=== PATIENT | male | born 1955 | race Caucasian/White ===

== ENCOUNTER 2020-12-18 13:45 | Emergency (ER) | payer MEDICARE, OTHER, SELFPAY ==
[2020-12-18] VITALS (20 sets, daily range): BP systolic 119–163; BP diastolic 71–125; PULSE 47–96; RESP 10–30; TEMP 36.2; O2SAT 94–97
--- NOTE | 2020-12-18 13:45 | RT.EKG_ITS ---
APPROVED REPORT Exam: Resting ECG Reason for Exam: heart fluttering Patient Location: E HR:74 bpm ECG Measurements Heart Rate 74 AXIS NV 216 P 39 QRSd 77 QRS 8 QT 403 T 25 QTc 446 Conclusion Sinus arrhythmia...V-rate 58- 86, variation>10% Atrial premature complex...SV complex w/ short R-R interval Borderline prolonged NV interval...NV >212, V-rate 50- 90 Probable left atrial enlargement...P >50mS, <-0.10mV V1 I have reviewed and interpreted ECG and agree with software generated interpretation.
--- NOTE | 2020-12-18 14:00 | ED.GENADUL_ITS ---
Discharge Plan Disposition Patient Disposition: HOME Condition: Stable Discharge Details Clinical Impression: Palpitations Primary Care Provider: Unknown,Unknown ED Provider: Siobhan Henriquez Home Meds and New Rx's Prescriptions: Continued atorvastatin 40 mg Tablet 40 mg PO DAILY RF: 0 montelukast 10 mg Tablet 10 mg PO DAILY RF: 0 aspirin 81 mg Tablet 81 mg PO DAILY RF: 0 albuterol sulfate [Ventolin HFA] 90 mcg/actuation Hfa Aerosol Inhaler INHALATION PRNRF: 0 albuterol sulfate 90 mcg/actuation Hfa Aerosol Inhaler 2 puff INHALATION PRNRF: 0 potassium chloride 10 mEq Tablet,Er Particles/Crystals 10 meq PO DAILY RF: 0 budesonide-formoterol [Symbicort] 160-4.5 mcg/actuation Hfa Aerosol Inhaler 2 puff INHALATION BID RF: 0 Eliquis 5 mg Tablet 5 mg PO BID RF: 0 N-Acetylcysteine 600 mg PO DAILY RF: 0 Discharge Instructions Instructions: Heart Palpitations (ED) Additional Instructions: Follow the instructions for the Holter monitor instructed by respiratory therapy. Please return in 48 hours to have Holter monitor removed. Keep your scheduled appointment this Friday with cardiology as previously scheduled. Follow up with primary care provider in 3-5 days. Return to ED sooner if any worsening chest pain, shortness of breath, dizziness, fainting spells or concerns. Increase oral fluids. Take your normal medications as directed. Discharge Data Discharge Date/Time-TO BE ENTERED AT DEPARTURE: 12/18/20 16:49 Medical Decision Making 65-year-old male presents the ER chief complaint heart palpitations, shortness of breath, associated with dizziness and anxiety. Patient states that he has had significant stress related to family matters over the last couple weeks. He reports he received some distressing news this morning and began with high blood pressure, heart fluttering and mild shortness of breath. He does have a past medical history of COPD, paralyzed left diaphragm, possibly atrial fibrillation, anxiety. He does take Eliquis and aspirin daily he did take his normal daily dose today. She did have an nebulizer treatment this morning. He endorses occasional marijuana denies any smoking or alcohol. Upon initial exam he has no chest pain denies any nausea vomiting, endorses diarrhea recently no fever no chills. At this time cardiac work-up ordered including serial troponin, PT INR, EKG chest x-ray. Differential diagnosis includes but not limited to to arrhythmia, anxiety, CAD, [place], COPD exacerbation Of note patient is not vaccinated for Covid and does not wish to be vaccinated at this time. He denies any fever. He is afebrile upon arrival. EKG was reviewed by Zeny Diaz MD ER attending, please see her official report and review. No old EKG available for comparison Labs are within normal limits for CBC, PTT 10.8 INR 1.1 CMP is largely within normal limits. Initial troponin is within normal limits XR CHEST 2V PA LATERAL EXAM: XR CHEST 2V PA LATERAL CLINICAL HISTORY: SOB, Hx COPD. TECHNIQUE: 2D digital imaging was performed. COMPARISON: No exams were available for comparison FINDINGS: Cardiomegaly. The mediastinum is not widened. Elevated left hemidiaphragm with atelectasis in the left lung base adjacent to the elevated hemidiaphragm. Right lung is clear. No pleural effusions IMPRESSION: Elevated left hemidiaphragm. Adjacent platelike atelectasis. 1557: Patient reevaluation, has remained chest pain-free since arrival, denies significant shortness of breath, discussed lab results with patient and chest x- ray. Patient does have a history of a paralyzed left diaphragm which has been present for the last couple years. Discussed home care and follow-up patient has a cardiology visit on Friday at [facility]. Disc ussed option for Holter monitor patient verbalized understanding and is in agreement with plan. Patient does not wish to stay for the second troponin draw and since patient is chest pain-free at this time and throughout stay I do feel that that is reasonable. RT notified to complete 48-hour Holter monitor. Patient discharged with instructions to follow-up with cardiology and PCP, verbalized understanding. He remained hemodynamically stable alert and oriented throughout stay was ambulatory upon discharge. HPI General Mode of arrival: ambulatory . Date/Time Provider Initiated Documentation: 12/18/20 13:50 . Limitations to Documentation: no limitations . Information obtained by: patient . HPI Narrative: 65-year-old male presents the ER chief complaint heart palpitations, shortness of breath, associated with dizziness and anxiety. Patient states that he has had significant stress related to family matters over the last couple weeks. He reports he received some distressing news this morning and began with high blood pressure, heart fluttering and mild shortness of breath. He does have a past medical history of COPD, paralyzed left diaphragm, possibly atrial fibrillation, anxiety. He does take Eliquis and aspirin daily he did take his normal daily dose today. She did have an nebulizer treatment this morning. He endorses occasional marijuana denies any smoking or alcohol. Upon initial exam he has no chest pain denies any nausea vomiting, endorses diarrhea recently no fever no chills. Related Data Home Medications Medication Instructions Recorded Confirmed Eliquis 5 mg PO BID 12/18/20 12/18/20 N-Acetylcysteine 600 mg PO DAILY 12/18/20 albuterol sulfate 2 puff INHALATION PRN 12/18/20 albuterol sulfate [Ventolin HFA] INHALATION PRN 12/18/20 aspirin 81 mg PO DAILY 12/18/20 12/18/20 atorvastatin 40 mg PO DAILY 12/18/20 12/18/20 budesonide-formoterol [Symbicort] 2 puff INHALATION BID 12/18/20 12/18/20 montelukast 10 mg PO DAILY 12/18/20 12/18/20 potassium chloride 10 meq PO DAILY 12/18/20 12/18/20 General Stated Complaint: Palpitatns SERA: 2 Review of Systems Narrative: Constitutional: Negative for weight loss, alert and oriented, well groomed, normal body habitus, appears comfortable. HEENT: Denies trauma, headaches, blurry vision, nasal discharge, sore throat, trouble swallowing. Chest: Denies chest pain, positive palpitations, history of hypertension. Respiratory: Denies cough, hemoptysis. Positive shortness of breath history of COPD. GI: Denies abdominal pain, nausea, vomiting, constipation. Positive diarrhea. : Denies dysuria, hematuria, flank pain, rectal bleeding. Neuro: Denies blurry vision, weakness, syncope, headache or facial numbness. Positive dizziness. Hematologic: Denies easy bruising, intolerance to heat or cold, hair loss. FORMERLY [facility], LATER [facility] Social History Smoking/Tobacco Use Status: Former Tobacco Use Smoking risk assessment performed?: Yes Alcohol Intake: never Drug use: Occasionally Substance use type: marijuana Exam Narrative Exam Narrative: Constitutional: Alert and oriented x3. Appears stated age. Overweight body habitus. Head: Normocephalic, no trauma. Eyes: Pupils PERRLA, Red reflex noted, EOM's intact. Eyelids symmetrical without lesions, discharge, or swelling. ENT: Bilateral TM's WNL, External ear normal to inspection, no mastoid TTP, swelling, or erythema, Nasal turbinates WNL, no nasal discharge. Normal dentition, Posterior pharynx WNL, no exudate. Chest: RRR, Normal S1, S2, distal pulses intact. Resp: Lungs clear to auscultation bilaterally, no wheezes, rales, or rhonchi. Musculoskeletal: Normal gait, 5/5 strength to all four extremities. Skin: No suspicious rashes or lesions. Capillary refill less than 2 sec. Neurologic: Cranial nerves II-XII intact. Alert and oriented x 3. DTR's intact. Hematologic/Lymphatic: No ecchymosis, no lymphadenopathy. Course Vital Signs Vital signs: Vital Signs Temperature 36.2 C L 12/18/20 13:52 Pulse 68 12/18/20 13:52 Respiratory Rate 24 12/18/20 13:52 Blood Pressure 131/104 H 12/18/20 13:52 Pulse Oximetry 96 12/18/20 13:52 Temperature 36.2 C L 12/18/20 13:52 Temperature Source Skin 12/18/20 13:52 Pulse 68 12/18/20 13:52 Respiratory Rate 24 12/18/20 13:52 Respiratory Effort Non-Labored 12/18/20 13:52 Blood Pressure 131/104 H 12/18/20 13:52 Blood Pressure Position Sitting 12/18/20 13:52 Pulse Oximetry 96 12/18/20 13:52 Pain Level 0 12/18/20 13:52
--- NOTE | 2020-12-18 14:00 | DI.RAD_ITS ---
Exam(s) XR CHEST 2V PA LATERAL EXAM: XR CHEST 2V PA LATERAL CLINICAL HISTORY: SOB, Hx COPD. TECHNIQUE: 2D digital imaging was performed. COMPARISON: No exams were available for comparison FINDINGS: Cardiomegaly. The mediastinum is not widened. Elevated left hemidiaphragm with atelectasis in the l eft lung base adjacent to the elevated hemidiaphragm. Right lung is clear. No pleural effusions IMPRESSION: Elevated left hemidiaphragm. Adjacent platelike atelectasis. DATA REPOSITORY: RADIATION DOSE DELIVERED:
[2020-12-18 14:19] LABS: Abs Immature Grans 0.03 10^3/uL (0.0-0.06); Absolute Basophil Count 0.04 10^3/uL (0.0-0.2); Absolute Eosinophil Count 0.28 10^3/uL (0.0-0.7); Absolute Lymphocyte Count 1.67 10^3/uL (1.2-3.4); Absolute Monocyte Count 0.72 10^3/uL (0.1-0.8); Absolute Neutrophil Count 5.32 10^3/uL (1.2-6.7); Basophils % 0.5; Eosinophils % 3.5; HCT 45.4 % (40.0-50.0); Immature Grans % 0.4; Lymphocytes % 20.7; MCH 29.6 pg (27.0-33.0); MCV 89.5 fL (80-95); MPV 9.1 fL (8.0-11.0); Monocytes % 8.9; Nucleated RBC 0 %; Platelet Count 145 10^3/uL (130-400); RBC 5.07 10^6/uL (4.36-5.78); RDW 13.4 % (11.8-14.1); RDW-SD 43.8 fL; WBC 8.06 10^3/uL (4.4-10.8)
[2020-12-18 14:53] LABS: INR 1.1 (0.9-1.1); Prothrombin Time 10.8 sec (9.3-11.0)
[2020-12-18 15:01] LABS: ALT 35 U/L (16-63); AST 20 U/L (15-37); Albumin 3.3 g/dL (3.4-5.0); Alkaline Phosphatase 92 U/L (46-116); Anion Gap 5.4 mmol/L (3-11); BUN 13 mg/dL (7-18); Bilirubin, Total 0.8 mg/dL (0.2-1.0); CO2 30.6 mmol/L (21.0-32.0); Calcium 8.4 mg/dL (8.5-10.1); Chloride 107 mmol/L (98-107); Glucose 98 mg/dL (74-106); Magnesium 2.1 mg/dL (1.8-2.4); Potassium 3.7 mmol/L (3.5-5.1); Sodium 143 mmol/L (136-145); Total Protein 6.6 g/dL (6.4-8.2)
[2020-12-18 15:12] LABS: Troponin I < 0.05 ng/mL (<0.06)
== END 2020-12-18 16:49 | disposition home or self-care (01) ==
PROVIDERS: Emergency Provider Registered Nurse Emergency
DX: R00.2 Palpitations (principal)
CPT/HCPCS: 36415; 80053; 93005; 99284; 71046; 83735; 84484; 85025; 85610; 93010; 93225; 99283

== ENCOUNTER 2020-12-18 15:58 | Outpatient (RCR) | payer MEDICARE, OTHER, SELFPAY ==
--- NOTE | 2020-12-18 16:00 | HOLTER_ITS ---
APPROVED REPORT Conclusion There is a 48-hour monitor ordered for indication palpitations. The patient was in normal sinus rhythm for the majority the recording with an average heart rate of 6 7 bpm. There were no episodes of ventricular tachycardia and rare PVCs. There were 11 episodes of supraventricular tachycardia with the longest lasting 9 beats. There were occasional (3%) PACs. There were no episodes of atrial fibrillation, no pauses greater than 3 seconds and no evidence of hi gh degree heart block. There were no patient recorded events.
== END 2020-12-30 23:59 | disposition home or self-care (01) ==
LOC: RT 15:58
PROVIDERS: Visit Provider Registered Nurse Emergency
DX: R00.2 Palpitations (principal); I47.1 Supraventricular tachycardia; I49.1 Atrial premature depolarization
CPT/HCPCS: 93227; 93225; 93226

== ENCOUNTER 2021-01-08 22:14 | Emergency (ER) | payer MEDICARE, OTHER, SELFPAY ==
--- NOTE | 2021-01-08 22:15 | RT.EKG_ITS ---
APPROVED REPORT Exam: Resting ECG Reason for Exam: chest tightness Patient Location: E HR:59 bpm ECG Measurements Heart Rate 59 AXIS MA 211 P 0 QRSd 75 QRS -17 QT 400 T -30 QTc 395 Conclusion Bradycardia with irregular rate...V-rate 51- 79, mean < 60
[2021-01-08 22:25] VITALS: BP 132/77; PULSE 78; RESP 20; TEMP 36.8; O2SAT 96
--- NOTE | 2021-01-08 22:30 | DI.RAD_ITS ---
Exam(s) XR CHEST 2V PA LATERAL EXAM: XR CHEST 2V PA LATERAL CLINICAL HISTORY: chest pain TECHNIQUE: 2D digital imaging was performed. COMPARISON: CR XR CHEST 2V PA LATERAL from 12/18/2020 FINDINGS: The left diaphragm is again noted to be elevated. The cardiac silhouette is partially obscured. The lungs are clear. No infiltrate, effusion or pulmonary edema is seen. IMPRESSION: No acute abnormality. DATA REPOSITORY: RADIATION DOSE DELIVERED:
[2021-01-08 22:59] VITALS: RESP 20
[2021-01-08 23:13] LABS: Abs Immature Grans 0.02 10^3/uL (0.0-0.06); Absolute Basophil Count 0.04 10^3/uL (0.0-0.2); Absolute Eosinophil Count 0.32 10^3/uL (0.0-0.7); Absolute Lymphocyte Count 2.09 10^3/uL (1.2-3.4); Basophils % 0.4; Eosinophils % 3.4; HCT 43.8 % (40.0-50.0); HGB 14.6 g/dL (13.5-17.5); Immature Grans % 0.2; Lymphocytes % 22.3; MCH 30.1 pg (27.0-33.0); MCHC 33.3 % (32.0-36.0); MCV 90.3 fL (80-95); MPV 9.1 fL (8.0-11.0); Monocytes % 8.5; Neutrophils % 65.2; Nucleated RBC 0 %; Platelet Count 154 10^3/uL (130-400); RBC 4.85 10^6/uL (4.36-5.78); RDW 13.2 % (11.8-14.1); RDW-SD 43.4 fL; WBC 9.37 10^3/uL (4.4-10.8)
--- NOTE | 2021-01-08 23:16 | ED.GENADUL_ITS ---
Discharge Plan Disposition Patient Disposition: HOME Condition: Improving Discharge Details Clinical Impression: Palpitations Primary Care Provider: Unknown,Unknown ED Provider: Howie Hannah Home Meds and New Rx's Prescriptions: Continued atorvastatin 40 mg Tablet 40 mg PO DAILY RF: 0 montelukast 10 mg Tablet 10 mg PO DAILY RF: 0 aspirin 81 mg Tablet 81 mg PO DAILY RF: 0 albuterol sulfate [Ventolin HFA] 90 mcg/actuation Hfa Aerosol Inhaler 2 inh INHALATION PRN PRNRF: 0 albuterol sulfate 90 mcg/actuation Hfa Aerosol Inhaler 2 puff INHALATION PRN PRNRF: 0 potassium chloride 10 mEq Tablet,Er Particles/Crystals 10 meq PO DAILY RF: 0 budesonide-formoterol [Symbicort] 160-4.5 mcg/actuation Hfa Aerosol Inhaler 2 puff INHALATION BID RF: 0 Eliquis 5 mg Tablet 5 mg PO BID RF: 0 N-Acetylcysteine 600 mg PO DAILY RF: 0 furosemide 40 mg Tablet 40 mg PO DAILY RF: 0 metoprolol succinate 50 mg Tablet Extended Release 24 Hr 50 mg PO DAILY AM RF: 0 Discharge Instructions Instructions: Heart Palpitations (ED) Additional Instructions: We discussed ongoing cardiac monitoring and repeat laboratories including cardiac troponin which you have elected to defer at this time. Please return at any time for reevaluation. Return or see nearest health care facility if you develop chest pain, shortness of breath, or any other acute concerns. Follow-up with your squilgeer as planned on Friday. I have included a copy of your laboratories for your records. WBC 9.37 RBC 4.85 Hgb 14.6 Hct 43.8 MCV 90.3 MCH 30.1 MCHC 33.3 RDW 13.2 Plt Count 154 Sodium 143 Potassium 3.7 Chloride 107 Carbon Dioxide 31.7 Anion Gap 4.3 BUN 18 Creatinine 1.1 Estimated GFR/1.73 m2 >= 60.00 Glucose 105 Calcium 8.6 Magnesium 2.2 Total Bilirubin 0.6 AST 22 ALT 28 Alkaline Phosphatase 95 Troponin I < 0.05 Total Protein 6.8 Albumin 3.4 TSH 1.16 Medical Decision Making 65-year-old male presents with history of atrial fibrillation and coronary artery disease. He states over the past day he has had intermittent episodes of palpitations that seem more prolonged than normal. At times he feels anterior chest is tight. He states he had a recent nuclear stress test within 2 months that he reports was okay, but due to persistent concern for underlying lesion, he has a follow-up outpatient cardiac catheterization planned for Friday at [facility]. He arrives to the ED with a pulse in the 60s to 70s, blood pressure 132/77 and a reassuring examination. Patient observed on a labor and delivery nurse, laboratories including troponin and screening chest x-ray obtained. Labs are reassuring and within the normal range. Discussed with patient ongoing observation and repeat troponin. He states he wishes to defer this at this time and will follow up with his squilgeer for planned outpatient cardiac catheterization on Friday. I do feel he has capacity to make this decision. He was provided a copy of his laboratory work and will continue all medications including metoprolol 50 mg once a day. He will return for any concerns. Lab Data Lab results reviewed: Yes I reviewed the patient's lab results. Labs: Laboratory Results - last 24 hr 01/08/21 01/08/21 23:04 23:04 WBC 9.37 RBC 4.85 Hgb 14.6 Hct 43.8 MCV 90.3 MCH 30.1 MCHC 33.3 RDW 13.2 Plt Count 154 MPV 9.1 Immature Gran % 0.2 Neutrophils % 65.2 Lymphocytes % 22.3 Monocytes % 8.5 Eosinophils % 3.4 Basophils % 0.4 Nucleated RBC % 0 Absolute Neutrophils 6.10 Absolute Lymphocytes 2.09 Absolute Monocytes 0.80 Absolute Eosinophils 0.32 Absolute Basophils 0.04 Sodium 143 Potassium 3.7 Chloride 107 Carbon Dioxide 31.7 Anion Gap 4.3 BUN 18 Creatinine 1.1 Estimated GFR/1.73 m2 >= 60.00 Glucose 105 Calcium 8.6 Magnesium 2.2 Total Bilirubin 0.6 AST 22 ALT 28 Alkaline Phosphatase 95 Troponin I < 0.05 Total Protein 6.8 Albumin 3.4 TSH 1.16 HPI General Mode of arrival: ambulatory . Date/Time Provider Initiated Documentation: 01/08/21 22:16 . Limitations to Documentation: no limitations . Information obtained by: patient . History of Present Illness 65 year old M presents to the emergency department with the chief complaint of Chest fluttering and tight, described as moderate, Quality is described as dull, and is localized to the chest. Patient reports no radiation. Patient started experiencing this hour(s) and it has been constant. No relieving fa ctors improve symptom(s), No exacerbating factors reported . Patient notes chest pain; denies cough, shortness of breath and syncope. Patient did receive the following treatments prior to arrival, none Related Data Home Medications Medication Instructions Recorded Confirmed Eliquis 5 mg PO BID 12/18/20 01/08/21 N-Acetylcysteine 600 mg PO DAILY 12/18/20 01/08/21 albuterol sulfate 2 puff INHALATION PRN PRN 12/18/20 01/08/21 albuterol sulfate [Ventolin HFA] 2 inh INHALATION PRN PRN 12/18/20 01/08/21 aspirin 81 mg PO DAILY 12/18/20 01/08/21 atorvastatin 40 mg PO DAILY 12/18/20 01/08/21 budesonide-formoterol [Symbicort] 2 puff INHALATION BID 12/18/20 01/08/21 montelukast 10 mg PO DAILY 12/18/20 01/08/21 potassium chloride 10 meq PO DAILY 12/18/20 01/08/21 furosemide 40 mg PO DAILY 01/08/21 01/08/21 metoprolol succinate 50 mg PO DAILY AM 01/08/21 01/08/21 Allergies Allergy/AdvReac Type Severity Reaction Status Date / Time No Known Allergies Allergy Unverified 01/08/21 22:28 General Stated Complaint: Chest Pain SERA: 2 Review of Systems Narrative: No change in urination although he seems to feel its darker, chronic shortness of breath is unchanged, no new cough, no fever. Has follow-up outpatient cardiac catheterization planned for Friday. 8 systems reviewed and otherwise negative FOR[facility]LY [facility], LAT[facility] Social History Smoking/Tobacco Use Status: Former Tobacco Use Smoking risk assessment performed?: Yes Alcohol Intake: never Drug use: Occasionally Substance use type: marijuana Do you feel safe at home: Yes Do you feel safe in your relationship?: Yes Exam Narrative Exam Narrative: GEN: awake, alert, oriented 3. Pleasant, well groomed, interactive. HEAD: Normocephalic, atraumatic ENT: Mucous membranes moist, oropharynx unremarkable, External ear exam unremarkable EYES: PERRL, EOMI NECK: Full ROM, no OMAR, no menigismus CHEST/RESP: Nontender, clear to auscultation bilateral, no wheeze/rhonchi/rales CARDIOVASCULAR: Irregularly irregular, no murmur, rub sb. 2+ Rad pulse bilateral ABDOMEN: Soft, nontender, no mass. +Bowel sounds EXT: Full ROM, no edema, no rash Neuro: Grossly normal neurologic exam, conversant, interactive. Psych: Speech fluent, thoughts congruent, affect normal Course Vital Signs Vital signs: Vital Signs Temperature 36.8 C 01/08/21 22:25 Pulse 78 01/08/21 22:25 Respiratory Rate 20 01/08/21 22:25 Blood Pressure 132/77 01/08/21 22:25 Pulse Oximetry 96 01/08/21 22:25 Temperature 36.8 C 01/08/21 22:25 Temperature Source Skin 01/08/21 22:25 Pulse 78 01/08/21 22:25 Respiratory Rate 20 01/08/21 22:59 Respiratory Effort Non-Labored 01/08/21 22:59 Respiratory Depth Normal 01/08/21 22:59 Respiratory Pattern Normal 01/08/21 22:59 Blood Pressure 132/77 01/08/21 22:25 Blood Pressure Position Sitting 01/08/21 22:25 Pulse Oximetry 96 01/08/21 22:25 Oxygen Delivery Method Room Air 01/08/21 22:25 Oxygen Flow Rate 0 01/08/21 22:25 Lab/Test Results Lab/Test Results: Laboratory Tests Range/Units 01/08/21 23:04 WBC (4.4-10.8) 10^3/uL 9.37 RBC (4.36-5.78) 10^6/uL 4.85 Hgb (13.5-17.5) g/dL 14.6 Hct (40.0-50.0) % 43.8 MCV (80-95) fL 90.3 MCH (27.0-33.0) pg 30.1 MCHC (32.0-36.0) % 33.3 RDW (11.8-14.1) % 13.2 Plt Count (130-400) 10^3/uL 154 MPV (8.0-11.0) fL 9.1 Immature Gran % 0.2 Neutrophils % 65.2 Lymphocytes % 22.3 Monocytes % 8.5 Eosinophils % 3.4 Basophils % 0.4 Nucleated RBC % % 0 Absolute Neutrophils (1.2-6.7) 10^3/uL 6.10 Absolute Lymphocytes (1.2-3.4) 10^3/uL 2.09 Absolute Monocytes (0.1-0.8) 10^3/uL 0.80 Absolute Eosinophils (0.0-0.7) 10^3/uL 0.32 Absolute Basophils (0.0-0.2) 10^3/uL 0.04
[2021-01-08 23:35] VITALS: PULSE 60; RESP 22
[2021-01-08 23:35] LABS: ALT 28 U/L (16-63); AST 22 U/L (15-37); Albumin 3.4 g/dL (3.4-5.0); Alkaline Phosphatase 95 U/L (46-116); Anion Gap 4.3 mmol/L (3-11); BUN 18 mg/dL (7-18); Bilirubin, Total 0.6 mg/dL (0.2-1.0); CO2 31.7 mmol/L (21.0-32.0); CREATININE 1.1 mg/dL (0.70-1.30); Calcium 8.6 mg/dL (8.5-10.1); Chloride 107 mmol/L (98-107); Glucose 105 mg/dL (74-106); Magnesium 2.2 mg/dL (1.8-2.4); Potassium 3.7 mmol/L (3.5-5.1); Sodium 143 mmol/L (136-145); TSH 1.16 uIU/mL (0.36-3.74); Total Protein 6.8 g/dL (6.4-8.2); Troponin I < 0.05 ng/mL (<0.06)
[2021-01-08 23:40] VITALS: PULSE 62; RESP 18
[2021-01-08 23:50] VITALS: RESP 19
[2021-01-08 23:54] VITALS: BP 143/90
--- NOTE | 2021-01-09 00:06 | DI.VRAD_ITS ---
PROCEDURE INFORMATION: Exam: XR Chest Exam date and time: 01/08/2021 10:31 PM Age: 65 years old Clinical indication: Pain; Other: Tightness, heart flutter TECHNIQUE: Imaging protocol: XR of the chest. Views: 2 views. COMPARISON: CR XR CHEST 2V PA LATERAL 12/18/2020 3:34 PM FINDINGS: Lungs: Left basilar atelectasis noted. Pleural spaces: Unremarkable. No pleural effusion. No pneumothorax. Heart/Mediastinum: Heart is mildly enlarged. Diaphragm: Persistent left hemidiaphragm elevation. Bones/joints: Unremarkable. Other findings: No significant effusion. IMPRESSION: Left hemidiaphragm elevation with associated atelectasis Dictated and Authenticated by: Jose Antonio Mina MD. Ordering:LUCIO Bautista MD
== END 2021-01-08 23:55 | disposition home or self-care (01) ==
PROVIDERS: Physician Assistant; Emergency Provider Emergency Medicine
DX: R00.2 Palpitations (principal); R07.89 Other chest pain
CPT/HCPCS: 36415; 80053; 93005; 99284; 71046; 83735; 84443; 84484; 85025; 93010

== ENCOUNTER 2021-02-28 19:28 | Emergency (ER) | payer MEDICARE, OTHER, SELFPAY ==
[2021-02-28] VITALS (41 sets, daily range): BP systolic 121–161; BP diastolic 83–118; PULSE 44–85; RESP 14–27; TEMP 36.6; O2SAT 89–95
--- NOTE | 2021-02-28 19:45 | RT.EKG_ITS ---
APPROVED REPORT Exam: Resting ECG Reason for Exam: dizziness Patient Location: E HR:65 bpm ECG Measurements Heart Rate 65 AXIS ND 217 P 11 QRSd 85 QRS 4 QT 407 T -22 QTc 443 Conclusion Sinus rhythm...normal P axis, V-rate 60- 99 Atrial premature complex...SV complex w/ short R-R interval Borderline prolonged ND interval...ND >212, V-rate 50- 90 Nonspecific T abnormalities, inferior leads...T <-0.10mV, II III aVF
[2021-02-28 20:18] LABS: Abs Immature Grans 0.03 10^3/uL (0.0-0.06); Absolute Basophil Count 0.05 10^3/uL (0.0-0.2); Absolute Lymphocyte Count 1.81 10^3/uL (1.2-3.4); Absolute Monocyte Count 0.79 10^3/uL (0.1-0.8); Absolute Neutrophil Count 6.42 10^3/uL (1.2-6.7); Basophils % 0.5; Eosinophils % 4.2; HCT 45.7 % (40.0-50.0); HGB 15.2 g/dL (13.5-17.5); Immature Grans % 0.3; Lymphocytes % 19.1; MCHC 33.3 % (32.0-36.0); MCV 90.1 fL (80-95); MPV 9.1 fL (8.0-11.0); Monocytes % 8.3; Neutrophils % 67.6; Nucleated RBC 0 %; Platelet Count 150 10^3/uL (130-400); RBC 5.07 10^6/uL (4.36-5.78); RDW 13.2 % (11.8-14.1)
[2021-02-28 20:33] LABS: ALT 33 U/L (16-63); AST 20 U/L (15-37); Albumin 3.6 g/dL (3.4-5.0); Alkaline Phosphatase 106 U/L (46-116); Anion Gap 5.5 mmol/L (3-11); BUN 14 mg/dL (7-18); Bilirubin, Total 0.8 mg/dL (0.2-1.0); CO2 30.5 mmol/L (21.0-32.0); Calcium 9.2 mg/dL (8.5-10.1); Chloride 107 mmol/L (98-107); Glucose 98 mg/dL (74-106); Potassium 4.2 mmol/L (3.5-5.1); Sodium 143 mmol/L (136-145); Total Protein 7.3 g/dL (6.4-8.2)
[2021-02-28 20:34] LABS: Troponin I < 0.05 ng/mL (<0.06)
--- NOTE | 2021-02-28 20:41 | NUR.NOTE ---
Nursing Note: Patient ambulated with steady gait, O2 sats went down to 92% on room air while ambulating, patient also reports feeling funny in the head. Dr. Diaz made aware.
[2021-02-28] MEDS: Lisinopril 20 MG TAB PO (20:54)
--- NOTE | 2021-02-28 21:09 | W.ED.GENAD ---
Discharge Plan Disposition Patient Disposition: HOME Condition: Stable Discharge Details Clinical Impression: Hypertension, Adverse effect of albuterol Primary Care Provider: Unknown,Unknown ED Provider: Leon Diaz Home Meds and New Rx's Prescriptions: Continued atorvastatin 40 mg Tablet 40 mg PO DAILY RF: 0 montelukast 10 mg Tablet 10 mg PO DAILY RF: 0 aspirin 81 mg Tablet 81 mg PO DAILY RF: 0 albuterol sulfate [Ventolin HFA] 90 mcg/actuation Hfa Aerosol Inhaler 2 inh INHALATION PRN PRNRF: 0 albuterol sulfate 90 mcg/actuation Hfa Aerosol Inhaler 2 puff INHALATION PRN PRNRF: 0 potassium chloride 10 mEq Tablet,Er Particles/Crystals 10 meq PO DAILY RF: 0 budesonide-formoterol [Symbicort] 160-4.5 mcg/actuation Hfa Aerosol Inhaler 2 puff INHALATION BID RF: 0 Eliquis 5 mg Tablet 5 mg PO BID RF: 0 N-Acetylcysteine 600 mg PO DAILY RF: 0 furosemide 40 mg Tablet 40 mg PO DAILY RF: 0 metoprolol succinate 50 mg Tablet Extended Release 24 Hr 50 mg PO DAILY AM RF: 0 Discharge Instructions Instructions: Hypertension (ED) Additional Instructions: Please take albuterol only as prescribed. I am concerned that you have been administering too much albuterol. It is recommended use nebulizer or Ventolin inhaler and to not take these in combination. Please keep a log of how you are using your albuterol. 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 Call tomorrow Please contact your primary care physician to arrange follow-up. Call tomorrow to arrange follow-up and have your blood pressure rechecked. If blood pressure is elevated you may need adjustment of antihypertensive medication. Return to the ER for any worsening or new concerning symptoms. Discharge Data Discharge Date/Time-TO BE ENTERED AT DEPARTURE: 03/01/21 00:09 Medical Decision Making 2122 -- 65-year-old male with multiple medical problems including hypertension, here with elevated blood pressure from baseline, noncompliant with antihypertensives lisinopril today. Patient hemodynamically stable with mildly elevated blood pressure. Patient is neurologically intact. Patient is saturating well in no respiratory distress. Lungs clear to auscultation bilaterally. Screening EKG was performed and reviewed and interpreted by me: Please see report, sinus rhythm 65 bpm with PACs, nondiagnostic. Screening labs reviewed and CBC and chemistry unremarkable. Troponin negative I will administer patient's lisinopril at increased dose of 20 mg. He has been on lisinopril 40 mg in the past and 10 mg has not been working for the past couple days. 2300 --patient was reassessed and remains hypertensive. On reassessment and further discussion patient notes that he has been taking a significant amount of albuterol. He thought he was supposed to take both his Ventolin inhaler and albuterol nebulizer at the same time and regularly as opposed to as needed. He has been doing this frequently. I am concerned he is receiving too much albuterol and having excessive beta agonist effect. I discussed my concern with patient and advised him on albuterol use. I did encourage him to follow-up with pulmonology to discuss further Patient remains neurologically intact. Mentating well. He is anxious. I will give him a dose of Ativan 1 mg orally. --Patient was reassessed and feeling better. Plan for discharge with outpatient follow-up. Disposition decision was made weighing the risks and benefits of hospitalization versus outpatient treatment, the risk for further decompensation, and the patient's wishes. The patient was stable and requested discharge. Prior to discharge, my usual and customary return precautions were reviewed with the patient - this included follow-up instructions and reason to return to the emergency department if condition worsens, does not improve as expected, or other new concerns arise. Patient understands importance of timely follow-up with PCP.. HPI General Mode of arrival: ambulatory. Date/Time Provider Initiated Documentation: 02/28/21 20:08. Limitations to Documentation: no limitations. Information obtained by: patient. HPI Narrative: 65-year-old male with history of COPD, intermittent oxygen dependent, here with multiple complaints. His chief complaint is that his blood pressure was elevated from baseline tonight. Of note the patient was started on lisinopril a few days. He took lisinopril 10 mg for 2 days neuro and noted no improvement of blood pressure and then discontinued it today. He states tonight his blood pressure was elevated in the 140s. He notes he has had intermittent shortness of breath today and has been using his inhalers as prescribed. He is concerned that the steroid and his inhalers is having an effect on his overall health. He states that while he was ambulating today his pulse ox did drop into the low 90s and upper 80s and he did self administer oxygen more than he typically does. He does note that he has had some lightheadedness today when ambulating which may be associated with hypoxia. He denies chest pain. No lower extremity edema or calf pain. No headache. No focal weakness or numbness. Related Data Home Medications Medication Instructions Recorded Confirmed Eliquis 5 mg PO BID 12/18/20 02/28/21 N-Acetylcysteine 600 mg PO DAILY 12/18/20 02/28/21 albuterol sulfate 2 puff INHALATION PRN PRN 12/18/20 02/28/21 albuterol sulfate [Ventolin HFA] 2 inh INHALATION PRN PRN 12/18/20 02/28/21 aspirin 81 mg PO DAILY 12/18/20 02/28/21 atorvastatin 40 mg PO DAILY 12/18/20 02/28/21 budesonide-formoterol [Symbicort] 2 puff INHALATION BID 12/18/20 02/28/21 montelukast 10 mg PO DAILY 12/18/20 02/28/21 potassium chloride 10 meq PO DAILY 12/18/20 02/28/21 furosemide 40 mg PO DAILY 01/08/21 02/28/21 metoprolol succinate 50 mg PO DAILY AM 01/08/21 02/28/21 Allergies Allergy/AdvReac Type Severity Reaction Status Date / Time No Known Allergies Allergy Unverified 02/28/21 19:39 General Stated Complaint: GenMedical SERA: 3 Review of Systems All systems reviewed & are unremarkable except as noted in HPI and below Constitutional Constitutional: Denies fever(s) Eyes Eyes: Denies blurry vision Cardiovascular Cardiovascular: Reports as per HPI, Denies chest pain, Denies syncope and Denies rapid heart rate Neurologic Neurologic: Denies syncope [facility] Social History Smoking/Tobacco Use Status: Former Tobacco Use Smoking risk assessment performed?: Yes Alcohol Intake: never Drug use: Occasionally Substance use type: marijuana Do you feel safe at home: Yes Do you feel safe in your relationship?: Yes Exam Const General: cooperative and no acute distress HENMT Head: normocephalic Mouth: moist mucous membranes Eyes Alignment and Position: alignment normal Conjunctivae: normal conjunctivae Sclera: normal sclerae Pupils: PERRL EOM: EOM intact bilaterally Other: No nystagmus Neck Neck: trachea midline and supple Resp Auscultation: clear to auscultation bilaterally, no rales, no rhonchi and no wheezes Cardio Jugular venous pressure: no JVD Rate: regular rate and not tachycardic Rhythm: abnormal rhythm irregularly irregular Heart Sounds: murmur systolic I/ GI Palpation: soft, not firm, no guarding, no masses, not rigid and nontender Skin General skin exam: no rashes or lesions noted Neuro General: patient alert, patient awake, patient oriented x3 and tone normal Extrem General: no calf tenderness and no edema Psych Appearance: grossly normal Mental Status: mental status grossly normal Speech and Movement: speech and movement normal Affect: anxious affect Course Vital Signs Vital signs: Vital Signs Temperature 36.6 C 02/28/21 19:33 Pulse 84 02/28/21 19:33 Respiratory Rate 16 02/28/21 19:33 Blood Pressure 161/104 H 02/28/21 19:33 Pulse Oximetry 95 02/28/21 19:33 Temperature 36.6 C 02/28/21 19:33 Temperature Source Tympanic 02/28/21 19:33 Pulse 52 L 02/28/21 20:31 Pulse 75 02/28/21 20:43 Respiratory Rate 26 H 02/28/21 20:43 Respiratory Effort Non-Labored 02/28/21 19:40 Respiratory Depth Normal 02/28/21 19:40 Respiratory Pattern Normal 02/28/21 19:40 Blood Pressure 153/98 H 02/28/21 20:31 Blood Pressure Mean 110 02/28/21 20:31 Blood Pressure Position Sitting 02/28/21 19:33 Pulse Oximetry 94 02/28/21 20:31 Oxygen Delivery Method Room Air 02/28/21 19:33 Oxygen Flow Rate 0 02/28/21 19:33 Pain Level 0 02/28/21 19:33 Lab/Test Results Lab/Test Results: Laboratory Tests Range/Units 02/28/21 02/28/21 20:05 20:05 WBC (4.4-10.8) 10^3/uL 9.50 RBC (4.36-5.78) 10^6/uL 5.07 Hgb (13.5-17.5) g/dL 15.2 Hct (40.0-50.0) % 45.7 MCV (80-95) fL 90.1 MCH (27.0-33.0) pg 30.0 MCHC (32.0-36.0) % 33.3 RDW (11.8-14.1) % 13.2 Plt Count (130-400) 10^3/uL 150 MPV (8.0-11.0) fL 9.1 Immature Gran % 0.3 Neutrophils % 67.6 Lymphocytes % 19.1 Monocytes % 8.3 Eosinophils % 4.2 Basophils % 0.5 Nucleated RBC % % 0 Absolute Neutrophils (1.2-6.7) 10^3/uL 6.42 Absolute Lymphocytes (1.2-3.4) 10^3/uL 1.81 Absolute Monocytes (0.1-0.8) 10^3/uL 0.79 Absolute Eosinophils (0.0-0.7) 10^3/uL 0.40 Absolute Basophils (0.0-0.2) 10^3/uL 0.05 Sodium (136-145) mmol/L 143 Potassium (3.5-5.1) mmol/L 4.2 Chloride (98-107) mmol/L 107 Carbon Dioxide (21.0-32.0) mmol/L 30.5 Anion Gap (3-11) mmol/L 5.5 BUN (7-18) mg/dL 14 Creatinine (0.70-1.30) mg/dL 1.0 Estimated GFR/1.73 m2 (mL/min/1.73m2) >= 60.00 Glucose (74-106) mg/dL 98 Calcium (8.5-10.1) mg/dL 9.2 Total Bilirubin (0.2-1.0) mg/dL 0.8 AST (15-37) U/L 20 ALT (16-63) U/L 33 Alkaline Phosphatase (46-116) U/L 106 Troponin I (<0.06) ng/mL < 0.05 Total Protein (6.4-8.2) g/dL 7.3 Albumin (3.4-5.0) g/dL 3.6 PAWSS Pt Consumed Any Amount of Alcohol Within the Last 30 days OR had positive SHERLYN Upon Admission: No
[2021-02-28] MEDS: LORazepam 1 MG TAB PO (23:08)
== END 2021-03-01 00:09 | disposition home or self-care (01) ==
PROVIDERS: Emergency Provider Student in an Organized Health Care Education/Training Program
DX: I10 Essential (primary) hypertension (principal); T48.6X5A Adverse effect of antiasthmatics, initial encounter; R42 Dizziness and giddiness; T46.4X6A Underdosing of angiotensin-converting-enzyme inhibitors, initial encounter
CPT/HCPCS: 80053; 93005; 99283; 84484; 85025; 93010; 99284